=== PATIENT | female | born 1930 | race Caucasian/White ===

== ENCOUNTER → 2018-07-18 | Outpatient (CLI) | payer OTHER ==
[~2018-07-18] MED LIST: AML5T PO; CETI1TAB36 PO; CHOL100039 PO; GABA300C10; GABA300C10 PO; GLYB2.5T8; GLYB2.5T8 PO; HCTZ25T PO; HYD500C PO; HYDR-4683 PO; HYDR10TA35; LEVO125T59 PO; LEVO125T7; LISI-275; LISI10TA6 OR; MULT-225 OR; SIMV-8; SIMV-8 PO; TRAM50TA2 PO; WARF2.5T39 PO; WARF5TAB71 OR; WARF5TAB71 PO; [UNRECOGNIZED DRUG - CODE] OR
[2018-07-18 11:53] LABS: Basophils # (auto) 0 uL; Eosinophils # (auto) 0.1 uL; Hemoglobin 12.4 g/dL (12.2-16.2); Lymphocytes # (auto) 0.8 uL; Neutrophils # (auto) 3.5 uL
[2018-07-18 11:56] LABS: Basophils % (auto) 0.4 % (0.0-2.0); Eosinophils % (auto) 1.7 % (0.0-7.0); Hematocrit 36.6 % (36.0-46.0); Lymphocytes % (auto) 16.4 % (10.0-50.0); Mean Corpuscular Hemoglobin 38.8 pg (28.0-32.0); Mean Corpuscular Hgb Conc. 33.9 g/dL (32.0-36.0); Mean Corpuscular Volume 114.7 fL (80.0-100.0); Monocytes # (auto) 0.6 uL; Monocytes % (auto) 11.3 % (0.0-12.0); Neutrophils % (auto) 70.2 % (37.0-80.0); Platelet Count (auto) 280 10^3/uL (140-450); Red Blood Cells 3.19 10^6/uL (4.0-5.20); Red Cell Distribution Width 13.3 % (11.8-14.3)
[2018-07-18 12:50] LABS: Albumin 3.6 g/dL (3.4-5.0); BUN/Creatinine Ratio 21.3; Bilirubin, Total 0.7 mg/dL (0.2-1.0); Calcium 8.8 mg/dL (8.5-10.1); Total Protein 6.9 g/dL (6.4-8.2)
== END | disposition home or self-care (01) ==
LOC: LAB 11:35
PROVIDERS: ATTEND Family Medicine
DX: C91.11 Chronic lymphocytic leukemia of B-cell type in remission (principal); D45 Polycythemia vera
CPT/HCPCS: 36415; 80053; 83615; 85025

== ENCOUNTER → 2018-11-07 | Outpatient (CLI) | payer OTHER ==
[~2018-11-07] MED LIST changes: -HYDR-4683 PO; +HYDR-4833 PO
[2018-11-07 12:14] LABS: Basophils # (auto) 0 uL; Eosinophils # (auto) 0.1 uL; Hematocrit 39.3 % (36.0-46.0); Hemoglobin 13.3 g/dL (12.2-16.2); Lymphocytes # (auto) 0.8 uL; Monocytes # (auto) 0.7 uL; White Blood Cell 6.7 10^3/uL (4.4-10.8)
[2018-11-07 12:16] LABS: Basophils % (auto) 0.3 % (0.0-2.0); Eosinophils % (auto) 1.4 % (0.0-7.0); Lymphocytes % (auto) 12.4 % (10.0-50.0); Mean Corpuscular Hemoglobin 37.6 pg (28.0-32.0); Mean Corpuscular Volume 110.7 fL (80.0-100.0); Monocytes % (auto) 10.9 % (0.0-12.0); Platelet Count (auto) 360 10^3/uL (140-450); Red Blood Cells 3.55 10^6/uL (4.0-5.20); Red Cell Distribution Width 13.2 % (11.8-14.3)
[2018-11-07 13:26] LABS: % Iron Saturation 30.5 % (15-50)
[2018-11-07 13:31] LABS: Potassium 4.8 mmol/L (3.5-5.1)
[2018-11-07 13:34] LABS: Folate (Folic Acid) 18.94 ng/mL (5.38-24)
[2018-11-07 13:37] LABS: Albumin 3.7 g/dL (3.4-5.0)
[2018-11-07 13:52] LABS: Bilirubin, Total 0.8 mg/dL (0.2-1.0)
== END | disposition home or self-care (01) ==
LOC: LAB 11:22
PROVIDERS: ATTEND Internal Medicine
DX: D45 Polycythemia vera (principal); I10 Essential (primary) hypertension; E78.5 Hyperlipidemia, unspecified; E03.9 Hypothyroidism, unspecified
CPT/HCPCS: 36415; 80053; 82607; 82746; 83540; 83550; 83615; 85025